=== PATIENT | female | born 1975 | race Two or more races ===

== ENCOUNTER 2024-06-19 01:06 | Inpatient (IN) | payer MEDICAID, OTHER ==
[~2024-06-19] VITALS: Ht 154.9 cm; Wt 60.5 kg
[2024-06-19 01:57] LABS: Basophils # (auto) 0 10 ^3/uL (0-0.2); Basophils % (auto) 0.7 % (0.0-2.0); Eosinophils # (auto) 0 10 ^3/uL (0-0.8); Eosinophils % (auto) 0.4 % (0.0-7.0); Hematocrit 35.7 % (36.0-46.0); Lymphocytes # (auto) 1.7 10 ^3/uL (0.4-5.4); Lymphocytes % (auto) 26.3 % (10.0-50.0); Mean Corpuscular Hemoglobin 29.4 pg (28.0-32.0); Mean Corpuscular Hgb Conc. 33.7 g/dL (32.0-36.0); Mean Corpuscular Volume 87.3 fL (80.0-100.0); Monocytes # (auto) 0.5 10 ^3/uL (0-1.3); Monocytes % (auto) 7.6 % (0.0-12.0); Neutrophils # (auto) 4.1 10 ^3/uL (1.6-8.6); Nucleated Red Blood Cells % 0.1 %; Platelet Count (auto) 390 10^3/uL (140-450); Red Blood Cells 4.09 10^6/uL (4.0-5.20); Red Cell Distribution Width 13.3 % (11.8-14.3); White Blood Cell 6.3 10^3/uL (4.4-10.8)
[2024-06-19 02:05] LABS: Chloride 106 mmol/L (98-107); Potassium 3.2 mmol/L (3.5-5.1); Sodium 138 mmol/L (136-145)
[2024-06-19 02:06] LABS: Anion Gap 12 (5-15); Calcium 10.1 mg/dL (8.7-10.4); Carbon Dioxide 20 mmol/L (20-31)
[2024-06-19 02:11] LABS: BUN/Creatinine Ratio 13.4 (10.0-20.0); Blood Urea Nitrogen 9 mg/dL (9-23); Glucose 120 mg/dL (74-106)
--- NOTE | 2024-06-19 02:12 | ED.PDOC ---
History of Present Illness HPI Comments 49F presents with three weeks of intermittent but worsening substernal 8/10 sharp chest pressure associated with shortness of breath. Patient denies any exacerbating or alleviating factors. She went to urgent care a few days and was told she likely has anxiety and was started on anxiety medication. She reports this has had no effect on her. Chief Complaint: Palpitations Time Seen by MD: 01:10 Allergies: Coded Allergies: NO KNOWN ALLERGIES (Unverified , 06/19/24) Information Source: Patient Mode of Arrival: Ambulatory Cardiovascular: reports: chest pain All Other Systems: Reviewed and Negative Physical Exam General Appearance: No Apparent Distress, Normal HEENT: Normal ENT Inspection, Pharynx Normal, TMs Normal Neck: Full Range of Motion, Non-Tender, Normal, Normal Inspection Respiratory: Chest Non-Tender, Lungs Clear, No Accessory Muscle Use, No Respiratory Distress, Normal Breath Sounds Cardiovascular: No Edema, No JVD, No Murmur, No Gallop, Normal Peripheral Pulses, Regular Rate/Rhythm Breast Exam: Deferred Gastrointestinal: No Organomegaly, Non Tender, No Pulsatile Mass, Normal Bowel Sounds, Soft Genitalia: Deferred Pelvic: Deferred Rectal: Deferred Extremities: No calf tenderness, Normal capillary refill, Normal inspection, Normal range of motion, Non-tender, No pedal edema Musculoskeletal : Apperance: Normal Neurologic: Alert, meat packager II-XII nml as Tested, No Motor Deficits, Normal Affect, Normal Mood, No Sensory Deficits Cerebellar Function: NOT DONE Reflexes: NOT DONE Skin: Dry, Normal Color, Warm Lymphatic: No Adenopathy Was a procedure done? Was a procedure done?: No Differential Dx Considerations may include: acs, anxiety, electrolyte abnormalities, infectious etiology X-Ray, Labs, Meds, VS Vital Signs Date Time Temp Pulse Resp B/P (MAP) Pulse Ox O2 Delivery O2 Flow Rate FiO2 06/19/24 01:23 98.5 83 15 153/108 (123) 98 06/19/24 01:14 83 Lab Test 06/19/24 02:46 06/19/24 01:48 Range/Units Troponin I High Sensitivity < 3 L < 3 L </=34 ng/L White Blood Count 6.3 4.4-10.8 10^3/uL Red Blood Count 4.09 4.0-5.20 10^6/uL Hemoglobin 12.0 L 12.2-16.2 g/dL Hematocrit 35.7 L 36.0-46.0 % Mean Corpuscular Volume 87.3 80.0-100.0 fL Mean Corpuscular Hemoglobin 29.4 28.0-32.0 pg Mean Corpuscular Hemoglobin Concent 33.7 32.0-36.0 g/dL Red Cell Distribution Width 13.3 11.8-14.3 % Platelet Count 390 140-450 10^3/uL Mean Platelet Volume 7.0 6.9-10.8 fL Neutrophils (%) (Auto) 65.0 37.0-80.0 % Lymphocytes (%) (Auto) 26.3 10.0-50.0 % Monocytes (%) (Auto) 7.6 0.0-12.0 % Eosinophils (%) (Auto) 0.4 0.0-7.0 % Basophils (%) (Auto) 0.7 0.0-2.0 % Neutrophils # (Auto) 4.1 1.6-8.6 10 ^3/uL Lymphocytes # (Auto) 1.7 0.4-5.4 10 ^3/uL Monocytes # (Auto) 0.5 0-1.3 10 ^3/uL Eosinophils # (Auto) 0 0-0.8 10 ^3/uL Basophils # (Auto) 0 0-0.2 10 ^3/uL Nucleated Red Blood Cells 0.1 % Sodium Level 138 136-145 mmol/L Potassium Level 3.2 L 3.5-5.1 mmol/L Chloride Level 106 98-107 mmol/L Carbon Dioxide Level 20 20-31 mmol/L Anion Gap 12 5-15 Blood Urea Nitrogen 9 9-23 mg/dL Creatinine 0.67 0.550-1.02 mg/dL Glomerular Filtration Rate Calc 108 >90 mL/min BUN/Creatinine Ratio 13.4 10.0-20.0 Serum Glucose 120 H 74-106 mg/dL Calcium Level 10.1 8.7-10.4 mg/dL Time of 1ST Reevaluation: 05:12 Reevaluation 1ST: Unchanged Patient Education/Counseling: Diagnosis, Treatment Family Education/Counseling: No Family Present Departure 1 Departure Time of Disposition: 05:12 (Patient presented with chest pain that was concerning for possible STEMI, ACS, PE, Pneumonia, Muscle Strain, COPD, Dissec tion. Data: 1. I ordered and reviewed the result of at least 3 labs including a CBC, BMP, and Troponin. 2. I independently interpreted the following tests: EKG which shows sinus tachycardic and Chest X-ray which shows benign chest.Risk:This patient has a high risk of morbidity due to further diagnostic testing or treatment and may suffer from an acute cardiac or respiratory disorder. Workup reveals concern for acs and patient should be admitted for further workup and possible expert consultation. ) Impression: Primary Impression: Acute chest pain Disposition: ADMITTED INPATIENT Admit to: Med Surg Condition: Serious Critical Care Note Critical Care Time?: No Stability Stability form required: No Heart Score Heart Score: Heart Score Response (Comments) Value History Moderate Suspicious 1 EKG Repolarization Disturb 1 Age 45-64 1 Risk Factors 1 or 2 risk factors 1 Troponin 1-2 x's Normal limit 1 Total 5 RHYS BEAR MD Jun 19, 2024 02:12
--- NOTE | 2024-06-19 03:37 | DVH ---
Examination: CXR2 Clinical Indication: chest pain. Comparison: None. Technique: Frontal and lateral radiograph of the chest was obtained. Findings: Lungs are clear and well expanded with no pulmonary infiltrate or pleural effusion. There is no pneumothorax. The cardiomediastinal silhouette is within normal limits. Atherosclerotic calcification of the aorti c arch. Mild adjacent to the descending thoracic aorta. No acute osseous abnormality is seen. Impression: No acute cardiopulmonary disease is seen. Electronically Signed 06/19/2024 03:36 Abiodun Sewell
--- NOTE | 2024-06-19 06:27 | DVHHP2 ---
History of Present Illness Reason for Visit: Palpitations History of Present Illness Yamel Sanford is a 49-year-old female with a unknown past medical history who presents to the ED for palpitations and chest pain 02/24. She reports going to the urgent care a few days ago and was told that it was anxiety and was given prescription medications but it did not work. Past Surgical History: None Family History: None Smoke: No ALCOHOL: none Drugs: None Lives: with Family Domestic Violence: Neg Review of Systems Constitutional: No: Fever, Chills, Sweats, Weakness, Malaise, Other Eyes: No: Pain, Vision change, Conjunctivae inflammation, Eyelid inflammation, Other, Redness ENT: No: Ear pain, Ear discharge, Nose pain, Nose discharge, Nose congestion, Mouth pain, Mouth swelling, Throat pain, Throat swelling, Other Respiratory: No: Cough, Dry, Shortness of breath, SOB with excertion, Wheezing, Hemoptysis, Pleuritic Pain, Sputum, Wheezing, Other Cardiovascular: Palpitations; No: Chest Pain, Orthopnea, Paroxysmal Noc. Dyspnea, Edema, Lt Headedness, Other Gastrointestinal: No: Nausea, Vomiting, Abdominal Pain, Diarrhea, Constipation, Melena, Hematochezia, Other Genitourinary: No Dysuria, No Frequency, No Incontinence, No Hematuria, No Retention, No Other Musculoskeletal: No: other, neck pain, shoulder pain, arm pain, back pain, hand pain, leg pain, foot pain Skin: No: Rash, Lesions, Jaundice, Bruising, Other Neurological: No: Weakness, Numbness, Incoordination, Change in speech, Confusion, Seizures, Other Allergies: Coded Allergies: NO KNOWN ALLERGIES (Unverified , 06/19/24) Exam Vital Signs Vital Signs Date Time Temp Pulse Resp B/P (MAP) Pulse Ox O2 Delivery O2 Flow Rate FiO2 06/19/24 04:08 69 06/19/24 01:23 98.5 15 153/108 (123) 98 General Appearance: Alert, Oriented X3, Cooperative, No acute distress HEENT: Atraumatic, PERRLA, EOMI, Mucous membr. moist/pink Respiratory: Clear to auscultation, Normal air movement Cardiovascular: Regular rate, Normal S1, Normal S2, No murmurs Abdominal: Normal bowel sounds, Soft, No tenderness, No hepatospenomegaly, No masses Extremities: No clubbing, No cyanosis, No edema, Normal pulses, No tenderness/swelling Skin: No rashes, No breakdown, No significant lesion Neuro: Normal gait, Normal speech, Strength at 5/5 X4 ext, Normal tone, Sensation intact Psych/Mental Status: Mental status NL, Mood NL Labs/Xrays Labs Test 06/19/24 02:46 06/19/24 01:48 Range/Units Troponin I High Sensitivity < 3 L </=34 ng/L White Blood Count 6.3 4.4-10.8 10^3/uL Red Blood Count 4.09 4.0-5.20 10^6/uL Hemoglobin 12.0 L 12.2-16.2 g/dL Hematocrit 35.7 L 36.0-46.0 % Mean Corpuscular Volume 87.3 80.0-100.0 fL Mean Corpuscular Hemoglobin 29.4 28.0-32.0 pg Mean Corpuscular Hemoglobin Concent 33.7 32.0-36.0 g/dL Red Cell Distribution Width 13.3 11.8-14.3 % Platelet Count 390 140-450 10^3/uL Mean Platelet Volume 7.0 6.9-10.8 fL Neutrophils (%) (Auto) 65.0 37.0-80.0 % Lymphocytes (%) (Auto) 26.3 10.0-50.0 % Monocytes (%) (Auto) 7.6 0.0-12.0 % Eosinophils (%) (Auto) 0.4 0.0-7.0 % Basophils (%) (Auto) 0.7 0.0-2.0 % Neutrophils # (Auto) 4.1 1.6-8.6 10 ^3/uL Lymphocytes # (Auto) 1.7 0.4-5.4 10 ^3/uL Monocytes # (Auto) 0.5 0-1.3 10 ^3/uL Eosinophils # (Auto) 0 0-0.8 10 ^3/uL Basophils # (Auto) 0 0-0.2 10 ^3/uL Nucleated Red Blood Cells 0.1 % Sodium Level 138 136-145 mmol/L Potassium Level 3.2 L 3.5-5.1 mmol/L Chloride Level 106 98-107 mmol/L Carbon Dioxide Level 20 20-31 mmol/L Anion Gap 12 5-15 Blood Urea Nitrogen 9 9-23 mg/dL Creatinine 0.67 0.550-1.02 mg/dL Glomerular Filtration Rate Calc 108 >90 mL/min BUN/Creatinine Ratio 13.4 10.0-20.0 Serum Glucose 120 H 74-106 mg/dL Calcium Level 10.1 8.7-10.4 mg/dL Examination: CXR2 Clinical Indication: chest pain. Findings: Lungs are clear and well expanded with no pulmonary infiltrate or pleural effusion. There is no pneumothorax. The cardiomediastinal silhouette is within normal limits. Atherosclerotic calcification of the aortic arch. Mild adjacent to the descending thoracic aorta. No acute osseous abnormality is seen. Impression: No acute cardiopulmonary disease is seen. Assessment/Plan Assessment/Plan Assessment: Rule out ACS Hypokalemia UTI Plan: Admit to [facility] lytes Beta-blockers Chest x-ray noted UA noted IV Abx Diet As tolerated Pain management EKG noted Monitor labs Home medications reconciled Plan discussed with: Patient My Orders Orders - MICHELLE SALGADO Procedure Category Date Status Time Hydralazine Injection PHA 06/19/24 Verified (Apresoline Inject 06:30 Hydralazine Injection PHA 06/19/24 Verified (Apresoline Inject 06:30 Date of Service: Jun 19, 2024 Billing Provider: MICHELLE SALGADO Common Visit Codes: [id number] INP/OBS CARE (MOD) MICHELLE SALGADO Jun 19, 2024 06:27
[2024-06-19] MEDS ORDERED: hydrALAZINE HCL 20 MG/ML VL IV PRN (06:30)
[2024-06-19] MEDS ORDERED: hydrALAZINE HCL 20 MG/ML VL IV ONE (06:30)
--- NOTE | 2024-06-19 06:33 | ECG ---
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
[2024-06-19] MEDS: POTASSIUM EFFERVESENT TAB 25 MEQ PO ONE (06:57)
[2024-06-19 07:55] VITALS: PULSE 89; RESP 18; O2SAT 97
[2024-06-19] MEDS ORDERED: ONDANSETRON HCL 4 MG/2 ML VIAL IV PRN (08:00)
[2024-06-19] MEDS ORDERED: MORPHINE SULFATE INJ 2 MG/ml SYRG IV PRN (08:00)
[2024-06-19] MEDS ORDERED: NITROGLYCERIN 0.4 MG SL TAB SL PRN (08:00)
[2024-06-19] MEDS ORDERED: LORazepam 0.5 MG TAB PO PRN (08:00)
[2024-06-19] MEDS ORDERED: MORPHINE SULFATE 4 MG/ML SYR/VIAL IV PRN (08:00)
[2024-06-19] MEDS ORDERED: ACETAMINOPHEN 325 MG TAB PO PRN (08:00)
[2024-06-19 09:03] LABS: Urine Bacteria None Seen /hpf (None Seen)
[2024-06-19 09:27] LABS: Urine Blood Negative /uL (Negative); Urine Clarity Clear (Clear); Urine Color Light-Yellow (Yellow); Urine Protein, UAD Negative (Negative); Urine Specific Gravity 1.012 (1.001-1.035); Urine Urobilinogen Normal (Negative); Urine WBC 5 /hpf (0 - 5)
[2024-06-19] MEDS: DOCUSATE SOD 100 MG CAP PO SCH (10:16)
[2024-06-19] MEDS: PROPRANOLOL HCL 20 MG TAB PO SCH (10:17)
[2024-06-19] MEDS: ASPirin 81 mg TAB PO SCH (10:33)
--- NOTE | 2024-06-19 11:04 | ECG ---
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
--- NOTE | 2024-06-19 11:06 | ECG ---
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
[2024-06-19 18:37] VITALS: BP 143/95; PULSE 60; RESP 17; TEMP 98; O2SAT 99
[2024-06-19 18:40] VITALS: BP 143/95; PULSE 60; RESP 17; TEMP 98; O2SAT 96; O2SAT 99
[2024-06-19] MEDS ORDERED: SERT-206 PO (19:02)
[2024-06-19] MEDS: cefTRIAXone 1GM/50ML D5W 50 ML IV ONE (19:52)
[2024-06-19 20:00] VITALS: PULSE 71
[2024-06-19 22:00] VITALS: BP 110/73; PULSE 76; RESP 16; TEMP 97.6; O2SAT 99
[2024-06-20] VITALS (8 sets, daily range): BP systolic 97–135; BP diastolic 59–88; PULSE 57–80; RESP 13–19; TEMP 79.9–98.1; O2SAT 94–100
[2024-06-20 07:50] LABS: Basophils # (auto) 0 10 ^3/uL (0-0.2); Basophils % (auto) 0.8 % (0.0-2.0); Eosinophils # (auto) 0.1 10 ^3/uL (0-0.8); Eosinophils % (auto) 1.5 % (0.0-7.0); Hemoglobin 11.7 g/dL (12.2-16.2); Lymphocytes # (auto) 2.2 10 ^3/uL (0.4-5.4); Lymphocytes % (auto) 36.5 % (10.0-50.0); Mean Corpuscular Hemoglobin 29.4 pg (28.0-32.0); Mean Corpuscular Hgb Conc. 33.4 g/dL (32.0-36.0); Mean Corpuscular Volume 88.1 fL (80.0-100.0); Monocytes # (auto) 0.6 10 ^3/uL (0-1.3); Monocytes % (auto) 9.6 % (0.0-12.0); Neutrophils # (auto) 3.1 10 ^3/uL (1.6-8.6); Neutrophils % (auto) 51.6 % (37.0-80.0); Nucleated Red Blood Cells % 0.1 %; Platelet Count (auto) 289 10^3/uL (140-450); Red Blood Cells 3.97 10^6/uL (4.0-5.20); Red Cell Distribution Width 13.2 % (11.8-14.3)
[2024-06-20 07:53] LABS: Potassium 3.8 mmol/L (3.5-5.1); Sodium 142 mmol/L (136-145)
[2024-06-20 07:54] LABS: Anion Gap 8 (5-15); Calcium 9.5 mg/dL (8.7-10.4); Carbon Dioxide 24 mmol/L (20-31)
[2024-06-20 07:59] LABS: BUN/Creatinine Ratio 12.7 (10.0-20.0); Blood Urea Nitrogen 9 mg/dL (9-23); Glucose 93 mg/dL (74-106)
[2024-06-20 08:01] LABS: Chloride 110 mmol/L (98-107)
[2024-06-20 08:25] LABS: Platelet Estimate Adequate
[2024-06-20] MEDS: cefTRIAXone 1GM/50ML D5W 50 ML IV SCH (09:01)
[2024-06-20 15:27] LABS: Erythrocyte Sedimentation Rate 10 mm/hr (0-20)
--- NOTE | 2024-06-20 15:58 | DVHPN2 ---
Subjective Patient continues to report having palpitations. Anxiety. Reviewed: Care Plan, H&P, Labs, Medications Changes from previous H/P or p: No Changes General: Per HPI Eyes: No Pain, No Vision change, No Conjunctivae inflammation, No Eyelid inflammation, No Other, No Redness ENT: No Ear pain, No Ear discharge, No Nose pain, No Nose discharge, No Nose congestion, No Mouth pain, No Mouth swelling, No Throat pain, No Throat swelling, No Other Cardiovascular: No Chest Pain; Palpitations; No Orthopnea, No Paroxysmal Noc. Dyspnea, No Edema, No Lt Headedness, No Other Respiratory: No Cough, No Dry, No Shortness of breath, No SOB with excertion, No Wheezing, No Hemoptysis, No Pleuritic Pain, No Sputum, No Other Gastrointestinal: No Nausea, No Vomiting, No Abdominal Pain, No Diarrhea, No Constipation, No Melena, No Hematochezia, No Other Genitourinary: No Dysuria, No Frequency, No Incontinence, No Hematuria, No Retention, No Other Musculoskeletal: No other, No neck pain, No shoulder pain, No arm pain, No back pain, No hand pain, No leg pain, No foot pain Skin: No Rash, No Lesions, No Jaundice, No Bruising, No Other Objective Vitals Vital Signs Date Time Temp Pulse Resp B/P (MAP) Pulse Ox O2 Delivery O2 Flow Rate FiO2 06/20/24 13:00 98.1 64 17 114/78 (90) 96 98.1 06/20/24 08:00 Room Air* 0 100 21 Intake/Output Intake and Output 06/20/24 07:00 Intake Total 600 ml Balance 600 ml Intake Oral 600 ml # Voids 3 General Appearance: Alert, Oriented X3, Cooperative, No acute distress HEENT: Atraumatic, PERRLA Lungs: Clear to auscultation, Normal air movement Cardiovascular: Regular rate, Normal S1, Normal S2 Abdomen: Normal bowel sounds Musculoskeletal: Normal sensory function, Normal motor function Extremities: No cyanosis Neuro: Normal gait, Normal speech Psych/Mental Status: Mental status NL, Mood NL Medications Current Medications Medications Dose Ordered Sig/Anitra Route Start Time Stop Time Status Last Admin Dose Admin Hydralazine HCl 10 mg Q6HP PRN IV 06/19/24 06:30 Aspirin 81 mg DAILY PO 06/19/24 10:00 06/20/24 09:02 81 MG Morphine Sulfate 2 mg Q30MP PRN IV 06/19/24 08:00 Acetaminophen 650 mg Q6HP PRN PO 06/19/24 08:00 Lorazepam 0.5 mg Q6HP PRN PO 06/19/24 08:00 Docusate Sodium 100 mg DAILY PO 06/19/24 10:00 06/20/24 09:03 100 MG Ondansetron HCl 4 mg Q4HP PRN IV 06/19/24 08:00 Nitroglycerin 0.4 mg Q5MINP PRN SL 06/19/24 08:00 Propranolol HCl 20 mg BID PO 06/19/24 10:00 06/20/24 09:03 20 MG Ceftriaxone Sodium 50 ml @ 100 mls/hr DAILY@09 IV 06/20/24 09:00 06/20/24 09:01 100 MLS/HR Laboratory Results Laboratory Tests 06/20/24 06:58 Chemistry Test 06/20/24 06:58 Calcium Level 9.5 mg/dL (8.7-10.4) Urinalysis Test 06/19/24 07:54 Urine Color Light-yellow (Yellow) Urine Clarity Clear (Clear) Urine pH 8.0 (5.0-9.0) Urine Specific [place] 1.012 (1.001-1.035) Urine Protein Negative (Negative) Urine Ketones 2+ (Negative) H Urine Blood Negative /uL (Negative) Urine Nitrite Negative (Negative) Urine Bilirubin Negative (Negative) Urine Urobilinogen Normal mg/dL (Negative) Urine Leukocyte Esterase 2+ /uL (Negative) Urine RBC 2 /hpf (0 - 4) Urine WBC 5 /hpf (0 - 5) Urine Squamous Epithelial Cells Few /hpf (<5) Urine Bacteria None seen /hpf (None Seen) Urine Glucose Normal mg/dL (Normal) Labs and/or images reviewed: Labs reviewed by me, Image(s) reviewed by me Assessment/Plan Assessment/Plan Impression: -palpitations -bigeminal PVCs -questionable anxiety disorder Plan: -patient has had troponin I negative x3. Twelve lead ECG negative for any ST changes. After evaluating court recording monitor over the past 12 hours, it appears the patient was having intermittent runs of bigeminy, as well as frequent unifocal PVCs. Patient was able to appreciate this ectopy. -cardiology consultation -echocardiogram -start metoprolol tartrate 12.5 mg p.o. b.i.d. as well as Mag oxide 400 mg p.o. b.i.d. -further course of care per Cardiology. Discussed with the patient. Total time spent with patient discussing and formulating plan of care: 35 minutes. This medical document was created using an electronic medical record system with Smove dictation system. Although this document has been carefully reviewed, there may still be some phonetic and typographical errors. These areas are purely typographical due to imperfections of the software programs, and do not reflect any compromise in the patient's medical care. Plan discussed with: Patient, Other (RN) My Orders Orders - BABATUNDE WOODSON NP Procedure Category Date Status Time D-Dimer LAB 06/20/24 Logged 14:43 * Cardiology Consult CONS 06/20/24 Verified 15:55 Magnesium Oxide PHA 06/21/24 Verified Tablet (Mag-Ox Tablet) 10:00 Magnesium Oxide PHA 06/20/24 Verified Tablet (Mag-Ox Tablet) 16:00 Metoprolol Tartrate PHA 06/20/24 Verified Tablet (Lopressor Ta 22:00 Date of Service: Jun 20, 2024 Billing Provider: BABATUNDE WOODSON NP Common Visit Codes: [id number] INP/OBS CARE(HIGH) BABATUNDE WOODSON NP Jun 20, 2024 15:58
[2024-06-20] MEDS: MAGNESIUM OXIDE 400 MG TAB PO ONE (16:00)
[2024-06-20 17:34] LABS: Magnesium 2.3 mg/dL (1.6-2.6)
--- NOTE | 2024-06-20 17:46 | DVHINCON2 ---
Date Seen: Jun 20, 2024 Referring Physician DOROTHY Saini Reason for Consultation Palpitations History of Present Illness This is a 49-year-old female patient who presents to the emergency room with chief complaint of palpitations and shortness of breath. The patient reports she noticed symptoms approximately one month ago. She reports that within this last week, she has been experiencing episodes of palpitations more frequently so she decided to come to the emergency room for further evaluation. Initial twelve lead electrocardiogram reveals normal sinus rhythm without any significant ST segment changes. Serial troponin level negative. At the time of assessment, she remains in normal sinus rhythm without any noted ectopy. After reviewing media monitor, she is noted to have multiple episodes with bigeminy PVCs. Significant past medical history includes anxiety. She reports recent stressful events at home between her and kids. The patient also reports a recent similar episode in which she went to urgent Care was diagnosed with anxiety and started on sertraline. She reports only taking it for approximately three days and stating that she does not feel like it has helped. Past Medical History Past medical history reviewed. No other significant than mentioned above. Past Surgical History Bilateral breast implants Family History: Diabetes mellitus G8 MOTHER Hypercholesterolemia G8 MOTHER G8 FATHER Hypertension G8 MOTHER G8 FATHER Family History Family history reviewed. Social History Denies the use of tobacco, alcohol or illicit drugs. Allergies: Coded Allergies: NO KNOWN ALLERGIES (Unverified , 06/19/24) Home Meds Reported Medications Sertraline Hcl (Sertraline Hcl) 50 Mg Tab, 50 MG PO DAILY for 30 Days, MG 06/19/24 Home Meds Home medications reviewed. Current Medications Current Medications Medications (Trade) Dose Ordered Sig/Anitra Route PRN Reason Start Time Stop Time Status Last Admin Ceftriaxone Sodium 50 ml @ 100 mls/hr DAILY@09 IV 06/20/24 09:00 06/20/24 09:01 Magnesium Oxide (Mag-Ox Tablet) 400 mg DAILY PO 06/21/24 10:00 Metoprolol Tartrate (Lopressor Tablet) 12.5 mg BID PO 06/20/24 22:00 Review of Systems Constitutional: No symptom reported Ears, Nose, & Throat: No symptom reported Eyes: No symptom reported Neurological: No symptoms reported Pulmonary/Respiratory: No symptoms reported Cardiovascular: Palpitations Gastrointestinal: No symptom reported Genitourinary: No symptom reported Musculoskeletal: No symptom reported Skin: No symptom reported Psychiatric: No symptom reported Endocrine: No symptom reported Hematologic/Lymphatic: No symptom reported Vital Signs Vital Signs Date Time Temp Pulse Resp B/P (MAP) Pulse Ox O2 Delivery O2 Flow Rate FiO2 06/20/24 13:00 98.1 64 17 114/78 (90) 96 98.1 06/20/24 08:00 Room Air* 0 100 21 Physical Exam General Appearance: Cooperative. Well-developed. Well-nourished. No acute distress. Pulmonary/Respiratory: Clear, bilateral breaths sounds. Cardiovascular/Chest: Regular rate and rhythm. Peripheral Pulses: 2+ Radial (R). 2+ Radial (L). 2+ Pedal (R). 2+ Pedal (L) Abdominal Exam: Normal bowel sounds. Ankle Exam: Negative ankle edema Lower extremities: Negative lower extremity edema Neuro/Mental Status: A/OX4, coherent. Thoughts/Psych: Normal thought pattern. Appropriate mood and affect. Good judgment and insight. Appearance: No acute distress. Skin Exam: Normal inspection. Normal color. Warm and dry. Labs/Diagnostic Data Labs Test 06/20/24 16:10 06/20/24 06:58 06/19/24 07:54 06/19/24 06:12 Range/Units D-Dimer, Quantitative 0.43 0.0-0.49 mg/L FEU White Blood Count 6.0 4.4-10.8 10^3/uL Red Blood Count 3.97 L 4.0-5.20 10^6/uL Hemoglobin 11.7 L 12.2-16.2 g/dL Hematocrit 35.0 L 36.0-46.0 % Mean Corpuscular Volume 88.1 80.0-100.0 fL Mean Corpuscular Hemoglobin 29.4 28.0-32.0 pg Mean Corpuscular Hemoglobin Concent 33.4 32.0-36.0 g/dL Red Cell Distribution Width 13.2 11.8-14.3 % Platelet Count 289 140-450 10^3/uL Mean Platelet Volume 8.2 6.9-10.8 fL Neutrophils (%) (Auto) 51.6 37.0-80.0 % Lymphocytes (%) (Auto) 36.5 10.0-50.0 % Monocytes (%) (Auto) 9.6 0.0-12.0 % Eosinophils (%) (Auto) 1.5 0.0-7.0 % Basophils (%) (Auto) 0.8 0.0-2.0 % Neutrophils # (Auto) 3.1 1.6-8.6 10 ^3/uL Lymphocytes # (Auto) 2.2 0.4-5.4 10 ^3/uL Monocytes # (Auto) 0.6 0-1.3 10 ^3/uL Eosinophils # (Auto) 0.1 0-0.8 10 ^3/uL Basophils # (Auto) 0 0-0.2 10 ^3/uL Nucleated Red Blood Cells 0.1 % Platelet Estimate Adequate Erythrocyte Sedimentation Rate 10 0-20 mm/hr Sodium Level 142 136-145 mmol/L Potassium Level 3.8 3.5-5.1 mmol/L Chloride Level 110 H 98-107 mmol/L Carbon Dioxide Level 24 20-31 mmol/L Anion Gap 8 5-15 Blood Urea Nitrogen 9 9-23 mg/dL Creatinine 0.71 0.550-1.02 mg/dL Glomerular Filtration Rate Calc 105 >90 mL/min BUN/Creatinine Ratio 12.7 10.0-20.0 Serum Glucose 93 74-106 mg/dL Calcium Level 9.5 8.7-10.4 mg/dL C-Reactive Protein High Sensitivity 0.04 <1.0 mg/dL Urine Color Light-yellow Yellow Urine Clarity Clear Clear Urine pH 8.0 5.0-9.0 Urine Specific [place] 1.012 1.001-1.035 Urine Protein Negative Negative Urine Ketones 2+ H Negative Urine Blood Negative Negative /uL Urine Nitrite Negative Negative Urine Bilirubin Negative Negative Urine Urobilinogen Normal Negative mg/dL Urine Leukocyte Esterase 2+ Negative /uL Urine RBC 2 0 - 4 /hpf Urine WBC 5 0 - 5 /hpf Urine Squamous Epithelial Cells Few <5 /hpf Urine Bacteria None seen None Seen /hpf Urine Glucose Normal Normal mg/dL Troponin I High Sensitivity < 3 L </=34 ng/L Assessment Palpitations, rule out cardiac arrhythmia Bigeminal premature ventricular contraction Rule out structural heart disease Hypokalemia, resolved ?Anxiety Plan/Recommendation We will continue with the following plan/recommendations (Dr. Michaud): We will proceed with obtaining a transthoracic echocardiogram to evaluate cardiac function. Patient noted to have multiple episodes bigeminal PVCs. We will recommend to continue with beta-jesus and magnesium therapy. We will also recommend to replete electrolytes and keep potassium greater than four and magnesium greater than two. In the setting of an unremarkable echocardiogram, there is no further inpatient cardiac workup indicated. Consider outpatient event monitor. Thank you for allowing us to care for this patient. Please call with any questions or concerns. Critical care time spent: 38 minutes This medical document was created using an electronic medical record system with voice recognition software and computerized dictation system. Although this document has been carefully reviewed, there might still be some phonetic and typographical errors. Occasional wrong-word or ``sound-alike substitutions may have occurred due to the inherent limitations of voice recognition software. These areas are purely typographical due to imperfections of the software programs and do not reflect any compromise in the patient's medical care. Please read the chart carefully and recognize, using context, where these substitutions have occurred. Plan discussed with: Patient Date of Service: Jun 20, 2024 Billing Provider: MURPHY MICHAUD MD Cardiology Common Codes: [id number] INP/OBS CARE (High) Cardiology Consultation Codes: [id number] CONSULT <45MIN ZAYRA CASTANEDA Jun 20, 2024 17:46
[2024-06-20] MEDS: METOPROLOL TARTRATE 25 MG TAB PO SCH (21:33)
[2024-06-21] VITALS (7 sets, daily range): BP systolic 99–137; BP diastolic 61–89; PULSE 60–78; RESP 12–17; TEMP 36.3; O2SAT 94–99
--- NOTE | 2024-06-21 09:27 | DVHSR ---
APPROVED REPORT EXAM: Two-dimensional and M-mode echocardiogram with Doppler and color Doppler. Blood Pressure: 114/78 mmHg INDICATION Palpitations bigeminy RISK FACTORS Height: 5'1, Weight: 133 DIMENSIONS LVDd3.5 (3.8-5.7cm)LA (2D)3.3 (1.9-4.0cm)Aortic Root2.9 (2.0-3.7cm) LVDs2.4 (2.5-4.0cm)LA (MM) (1.9-4.0cm)Aortic Cusp Exc1.6 (1.5-2.0cm) EF (%) 60.0 (55-70%)Rt. Atrium3.2 (1.9-4.0cm)Asc. Aorta2.5 cm IVSd1.0 (0.7-1.1cm)RV (D) (1.8-2.4cm) PWd1.2 (0.7-1.1cm) Mitral Valve MitralMitral Stenosis E wave0.96m/sMV Mean GR.mmHg A wave0.82m/sMV Peak GR.mmHg E/A ratio1.22D MVAcm2 DECEL [id number] 1/2 [place] Aortic Valve Aortic ValveAortic Stenosis V11.08m/Cyrus Mean GR.4mmHg V21.34m/Cyrus Peak GR.7mmHg LVOT Diameter1.9 (1.8-2.4cm)Doppler AVA2.28cm2 Pulmonic Valve V20.90m/s Tricuspid Valve TR Velocity1.91m/s [id number] Conclusion Normal left ventricular size and dimension. Normal left ventricular systolic function estimated ejec tion fraction 55%. Normal diastolic function. Normal right ventricular size and dimension. Normal right ventricular systolic function. Normal biatrial size and dimension. Normal aortic valve structure and function. Normal mitral valve structure and function. Normal tricuspid valve structure and function. The pulmonary valve is grossly normal. No pericardial effusion.
[2024-06-21] MEDS: MAGNESIUM OXIDE 400 MG TAB PO SCH (09:46)
--- NOTE | 2024-06-21 14:23 | DVHDS2 ---
Discharge Summary Date of Admission Jun 19, 2024 at 07:51 Date of Discharge: Jun 21, 2024 Admitting Diagnosis Palpitations Labs/Diagnostic Data: Laboratory Results Test 06/20/24 18:14 06/20/24 16:10 06/20/24 06:58 06/19/24 07:54 Hemoglobin A1c 5.8 % A1C (<5.7) D-Dimer, Quantitative 0.43 mg/L FEU (0.0-0.49) White Blood Count 6.0 10^3/uL (4.4-10.8) Red Blood Count 3.97 10^6/uL (4.0-5.20) Hemoglobin 11.7 g/dL (12.2-16.2) Hematocrit 35.0 % (36.0-46.0) Mean Corpuscular Volume 88.1 fL (80.0-100.0) Mean Corpuscular Hemoglobin 29.4 pg (28.0-32.0) Mean Corpuscular Hemoglobin Concent 33.4 g/dL (32.0-36.0) Red Cell Distribution Width 13.2 % (11.8-14.3) Platelet Count 289 10^3/uL (140-450) Mean Platelet Volume 8.2 fL (6.9-10.8) Neutrophils (%) (Auto) 51.6 % (37.0-80.0) Lymphocytes (%) (Auto) 36.5 % (10.0-50.0) Monocytes (%) (Auto) 9.6 % (0.0-12.0) Eosinophils (%) (Auto) 1.5 % (0.0-7.0) Basophils (%) (Auto) 0.8 % (0.0-2.0) Neutrophils # (Auto) 3.1 10 ^3/uL (1.6-8.6) Lymphocytes # (Auto) 2.2 10 ^3/uL (0.4-5.4) Monocytes # (Auto) 0.6 10 ^3/uL (0-1.3) Eosinophils # (Auto) 0.1 10 ^3/uL (0-0.8) Basophils # (Auto) 0 10 ^3/uL (0-0.2) Nucleated Red Blood Cells 0.1 % Platelet Estimate Adequate Erythrocyte Sedimentation Rate 10 mm/hr (0-20) Sodium Level 142 mmol/L (136-145) Potassium Level 3.8 mmol/L (3.5-5.1) Chloride Level 110 mmol/L (98-107) Carbon Dioxide Level 24 mmol/L (20-31) Anion Gap 8 (5-15) Blood Urea Nitrogen 9 mg/dL (9-23) Creatinine 0.71 mg/dL (0.550-1.02) Glomerular Filtration Rate Calc 105 mL/min (>90) BUN/Creatinine Ratio 12.7 (10.0-20.0) Serum Glucose 93 mg/dL (74-106) Calcium Level 9.5 mg/dL (8.7-10.4) Magnesium Level 2.3 mg/dL (1.6-2.6) C-Reactive Protein High Sensitivity 0.04 mg/dL (<1.0) Triglycerides Level 53 mg/dL (< 150) Cholesterol Level 171 mg/dL (< 200) LDL Cholesterol 110 mg/dL (< 100) HDL Cholesterol 51 mg/dL (40-59) Thyroid Stimulating Hormone (TSH) 1.17 uIU/mL (0.55-4.78) Urine Color Light-yellow (Yellow) Urine Clarity Clear (Clear) Urine pH 8.0 (5.0-9.0) Urine Specific [place] 1.012 (1.001-1.035) Urine Protein Negative (Negative) Urine Ketones 2+ (Negative) Urine Blood Negative /uL (Negative) Urine Nitrite Negative (Negative) Urine Bilirubin Negative (Negative) Urine Urobilinogen Normal mg/dL (Negative) Urine Leukocyte Esterase 2+ /uL (Negative) Urine RBC 2 /hpf (0 - 4) Urine WBC 5 /hpf (0 - 5) Urine Squamous Epithelial Cells Few /hpf (<5) Urine Bacteria None seen /hpf (None Seen) Urine Glucose Normal mg/dL (Normal) Test 06/19/24 06:12 Troponin I High Sensitivity < 3 ng/L (</=34) Other Laboratory Tests 06/20/24 06:58 Brief Hx & Hospital Course: History of Present Illness Yamel Sanford is a 49-year-old female with a unknown past medical history who presents to the ED for palpitations and chest pain 02/24. She reports going to the urgent care a few days ago and was told that it was anxiety and was given prescription medications but it did not work. Course of hospitalization: Patient was bedside telemetry was reviewed which revealed with the patient was having frequent runs of ventricular bigeminy. Patient was started on metoprolol tartrate as well as magnesium oxide. Cardiology consultation was obtained. Patient had echocardiogram without any acute findings. Review of the patient's bedside telemetry today reveals that her unifocal ectopy has resolved. Patient denies having more symptoms of palpitations. Patient will be discharged home and instructed to follow up with the discharge Clinic in 1-2 weeks as well as her PCP in 1-2 weeks. She will be continued on metoprolol tartrate 12.5 mg p.o. b.i.d. as well as Mag oxide 400 mg p.o. daily. Physical exam General: Alert and Oriented x3. No acute distress. Well-nourished. Eyes: EOMI. Anicteric. HENT: Moist mucous membranes. Lungs: Clear to auscultation bilaterally. No accessory muscle use. Cardiovascular: Regular rate and rhythm. No murmur. No JVD. Abdomen: Soft, non-tender and non-distended. No palpable masses. Extremities: No edema. Non-tender. Skin: No rashes or lesions. Warm. Neurologic: No focal neurological deficits. CN II-XII grossly intact, but not individually tested. Psychiatric: Cooperative. Appropriate mood and affect. Total time spent with patient discussing and formulating plan of care: 35 minutes. This medical document was created using an electronic medical record system with [employer] dictation system. Although this document has been carefully reviewed, there may still be some phonetic and typographical errors. These areas are purely typographical due to imperfections of the software programs, and do not reflect any compromise in the patient's medical care. Consults/Reason for consult Cardiology: Palpitations with ventricular bigeminy Condition at Discharge: Fair Final Diagnosis/Problems List Palpitations with ventricular bigeminy Secondary Diagnosis: Anxiety Discharge Disposition: Home Discharge Instruct/Medications Diet: Regular Activity: No Restrictions, As Tolerated Follow Up/Referral: Discharge Clinic in one week Medications: Mag oxide 400 mg p.o. daily Metoprolol tartrate 12.5 mg p.o. b.i.d. 36 Discharge Statement: "Patient was advised to return to the ER or call 911 if any headaches, dizziness, shortness of breath, chest pain, abdominal pain, bleeding, fevers, or worsening of medical condition. Patient was counseled about treatment plan, medications, possible side effects, patientverbalized understanding. All questions were answered to the best of my ability. This discharge took greater then 30 minutes in planning, reviewing documentation, counseling the patient, and discussing with other team members." ASSESSMENT ASSESSMENT Assessment Palpitations with ventricular bigeminy Date of Service: Jun 21, 2024 Billing Provider: BABATUNDE WOODSON NP Common Visit Codes: 11580-VRE/OBS DISCH DAY >30min BABATUNDE WOODSON NP Jun 21, 2024 14:23
[2024-06-21] MEDS ORDERED: METO25TA5 PO (14:26)
[2024-06-21] MEDS ORDERED: MAGN400T40 PO (14:26)
== END 2024-06-21 19:00 | disposition home or self-care (01) | DRG 201 ==
LOC: ER 01:06 → TELE 07:51 → TELE-WESTW 18:35
PROVIDERS: ATTEND Nurse Practitioner Acute Care
DX: I49.3 Ventricular premature depolarization (principal); E87.6 Hypokalemia; N39.0 Urinary tract infection, site not specified; F41.9 Anxiety disorder, unspecified; Z83.3 Family history of diabetes mellitus; Z82.49 Family history of ischemic heart disease and other diseases of the circulatory system; Z98.82 Breast implant status
CPT/HCPCS: 36415; 71046; 80048; 80061; 81001; 83036; 83735; 84443; 84484; 85025; 85379; 85652; 86141; 93005; 93306; 96365; G0378